=== PATIENT | male | born 1930 | race Caucasian/White ===

== ENCOUNTER 2018-06-07 20:35 | Emergency (ER) | payer MEDICARE, BC ==
[~2018-06-07] VITALS: Ht 185.4 cm; Wt 81.6 kg
[2018-06-08 06:57] VITALS: BP 142/65
[2018-06-08] MEDS ORDERED: SODIUM CHLORIDE 0.9% 1,000 ML IV ONE (07:27)
== END 2018-06-08 08:29 | disposition left against medical advice (07) ==
LOC: ER 20:35
DX: M79.89 Other specified soft tissue disorders (principal); Z59.0 Homelessness
CPT/HCPCS: 71045

== ENCOUNTER 2018-09-12 16:40 | Inpatient (IN) | payer MEDICARE, BC ==
[~2018-09-12] VITALS: Ht 185.4 cm; Wt 80.0 kg
[2018-09-12 17:31] LABS: Basophils # (auto) 0.1 uL; Basophils % (auto) 0.4 % (0.0-2.0); Eosinophils # (auto) 0 uL; Eosinophils % (auto) 0.2 % (0.0-7.0); Hematocrit 37.6 % (41.0-53.0); Hemoglobin 12.7 g/dL (13.5-17.5); Lymphocytes % (auto) 6.6 % (10.0-50.0); Mean Corpuscular Hemoglobin 32.8 pg (28.0-32.0); Mean Corpuscular Hgb Conc. 33.8 g/dL (32.0-36.0); Mean Corpuscular Volume 97.2 fL (80.0-100.0); Monocytes # (auto) 0.8 uL; Neutrophils # (auto) 13.7 uL; Neutrophils % (auto) 87.8 % (37.0-80.0); Nucleated Red Blood Cells % 0.1 %; Platelet Count (auto) 246 10^3/uL (140-450); Red Blood Cells 3.86 10^6/uL (4.5-5.90); Red Cell Distribution Width 14.4 % (11.8-14.3); White Blood Cell 15.6 10^3/uL (4.4-10.8)
[2018-09-12 18:02] LABS: Albumin 3.3 g/dL (3.4-5.0); Calcium 8.5 mg/dL (8.5-10.1); Potassium 4.1 mmol/L (3.5-5.1)
[2018-09-12 18:03] LABS: BUN/Creatinine Ratio 25.8
[2018-09-12 18:07] LABS: Bilirubin, Total 0.9 mg/dL (0.2-1.0); Total Protein 7.3 g/dL (6.4-8.2)
[2018-09-12 18:31] LABS: Urine Bacteria NONE SEEN /hpf (None Seen); Urine Blood Negative /uL (Negative); Urine Mucus FEW (None Seen); Urine WBC 1 /hpf (0 - 3)
[2018-09-12] MEDS ORDERED: ACETAMINOPHEN 325 MG TAB PO PRN (22:00)
[2018-09-12] MEDS ORDERED: ONDANSETRON HCL 4 MG/2 ML VIAL IV PRN (22:00)
[2018-09-12] MEDS ORDERED: SODIUM CHLORIDE 0.9% 1,000 ML IV ONE (22:00)
[2018-09-12] MEDS ORDERED: LORazepam 0.5 MG TAB PO PRN (22:00)
[2018-09-12] MEDS: HYDROcodone-ACET 5/325MG TAB PO PRN (22:35)
[2018-09-12] MEDS: DONEPEZIL HYDROCHLORIDE 5 MG TAB PO SCH (22:35)
[2018-09-12] MEDS: cefTRIAXone 1GM/50ML D5W 50 ML IV SCH (22:35)
--- NOTE | 2018-09-12 22:45 | NUR ---
Respiratory note: NO PRN TX GIVEN AT THIS TIME, NOT INDICATED. NO SOB NOTED. SPO2 98% ON RA,HR 59, RR 18. BREATH SOUNDS DIMINISHED THROUGHOUT. PT IS AWAKE AND ALERT, WATCHING TV. STATES HE IS HUNGRY. SANDWICH PROVIDED. NO DISTRESS NOTED.
--- NOTE | 2018-09-12 23:05 | NUR ---
MS admit from ER FATEMEH ZAVALA admitted to tele/MS after SBAR received from Vincent SANTA. Patient oriented to Selina Pro RN primary RN, unit, room, bed, and unit policies regarding patient care and visiting hours. Patient weighed by bedscale and encouraged to call if they need something. All questions and concerns addressed, patient verbalized understanding. Note: Fall and safety precautions in place. Call light within reach.
[2018-09-12 23:25] VITALS: BP 130/59
[2018-09-12 23:30] VITALS: BP 114/50
--- NOTE | 2018-09-12 23:30 | NUR ---
WOUND Wounds on bilateral heels cleansed with wound rack cleaner, wound culture of moist area on right heel taken, pictures of both feet taken, and dressed. Pt tolerated well. Will continue to monitor
[2018-09-12 23:54] VITALS: BP 114/50
[2018-09-13] MEDS ORDERED: DEXTROSE (50%) 50ML SYRG IV PRN (00:15)
[2018-09-13] MEDS ORDERED: HYDR-4683 PO (00:19)
[2018-09-13] MEDS ORDERED: POTA10TA79 PO (00:19)
[2018-09-13] MEDS: CLINDAMYCIN 600MG IV 50 ML IV SCH ×4 (00:19→21:39)
[2018-09-13] MEDS ORDERED: DONE5TAB31 PO (00:19)
[2018-09-13] MEDS ORDERED: FURO20TA3 PO (00:19)
[2018-09-13] MEDS ORDERED: [UNRECOGNIZED DRUG - CODE] IM (00:22)
[2018-09-13] MEDS ORDERED: OMEP20TA PO (00:22)
[2018-09-13] MEDS ORDERED: METO-169 PO (00:22)
[2018-09-13] MEDS ORDERED: TRAZ50TA2 PO (00:22)
[2018-09-13] MEDS ORDERED: AMLO5TAB13 PO (00:22)
[2018-09-13] MEDS ORDERED: FLUT250M2 INH (00:22)
--- NOTE | 2018-09-13 04:49 | NUR ---
REFUSE Pt refusing lab draw this morning, stating to "come back later after I eat." Educated patient that MD has ordered lab draws this morning and importance of monitoring lab values daily. Pt verbalized understanding, still refusing. Informed assistant city attorney to return at later time.
[2018-09-13 05:00] VITALS: BP 120/56
[2018-09-13] MEDS: InsuLIN REG 1unit/0.01ml Soln (100units/ml) SC SCH ×4 (06:19→21:39)
[2018-09-13] MEDS: ACCU-CHEK COMFORT CURVE STRIP VI SCH ×4 (06:19→21:40)
--- NOTE | 2018-09-13 08:00 | NUR ---
Opening Shift Note Assumed care of patient, awake and alert. No S/S of distress/SOB. Patient c/o Corado catheter leaking. This nurse checked the catheter. There was urine in the tubing and in the bag. Attached a stat lock to keep Corado in place. Instructed on POC and to call for assist PRN, will continue to monitor for changes Q1hr and PRN.
[2018-09-13 09:37] VITALS: BP 118/55
[2018-09-13] MEDS: cefTRIAXone 1GM/50ML D5W 50 ML IV SCH (09:39)
[2018-09-13] MEDS: HYDROcodone-ACET 5/325MG TAB PO PRN ×2 (09:39→21:40)
[2018-09-13] MEDS: amLODIPine BESYLATE 5 MG TAB PO SCH (09:40)
--- NOTE | 2018-09-13 10:00 | NUR ---
Refusing labs Lab called and said patient refused lab draw again this morning (second time) and that they were going to cancel the labs for this morning.
--- NOTE | 2018-09-13 10:00 | NUR ---
Respiratory note: ASSESSED PT FOR PRN TX. PT AWAKE AND ALERT NO RESPIRATORY DISTRESS NOTED HR 60, SPO2 95% ON ROOM AIR, RR 20 BS ARE DIMINISHED. PT KNOWS TO HAVE RT PAGED IF TX NEEDED.
[2018-09-13 12:40] VITALS: BP 110/57
[2018-09-13] MEDS: IPRATROPIUM BROM 0.5 MG/2.5ML INH SOL NEB PRN (12:55)
[2018-09-13] MEDS: ALBUTEROL SULF 2.5 MG/0.5ML(0.5%) NEB SOLN NEB PRN (12:55)
--- NOTE | 2018-09-13 15:50 | NUR ---
Incorrect entry - pain Incorrect entry regarding abdominal pain. This was entered on the wrong patient. Please disregard. Patient is not c/o any abdominal pain.
[2018-09-13 16:56] VITALS: BP 117/69
[2018-09-13] MEDS ORDERED: TAMSULOSIN HYDROCHLORIDE 0.4 MG CAP PO SCH (18:00)
--- NOTE | 2018-09-13 18:10 | NUR ---
WOUND CARE NOTE: PATIENT WAS RECENTLY ADMITTED TO [facility] WITH DIAGNOSIS OF BLE FEET CELLULITIS. CURRENT BIBIANA SCORE IS 17. PATIENT CAN AMBULATE WITH NO ASSISTANCE BY STAFF. PATIENT NOTED TO HAVE SKIN INTEGRITY ISSUES TO BILATERAL FEET. WOUND PHOTOS TAKEN UPON ADMIT BY BEDSIDE NURSE. PATIENT STATES THAT HE HAS HAD "WOUNDS" TO HIS BILATERAL FEET FOR MORE THAN 2 YEARS. PATIENT HAS MULTIPLE AREAS WITH HYPERKERATOTIC SKIN. NO OPEN OR DRAINING AREAS NOTED. NO S/S OF INFECTION NOTED. NO EDEMA NOTED TO SKIN. PATIENT WOULD BENEFIT FROM BID APPLICATIONS WITH HYDROGUARD OINTMENT TO HELP SLOUGH OFF CRUSTY HYPERKERATOTIC SKIN. PATIENT SHOULD ELEVATE HIS FEET WHEN IN BED. SKIN WOUND CARE PLAN IMPLEMENTED. NO FURTHER WOUND CARE MONITORING NEEDED. Addendum: 09/13/18 at 1817 by Lucinda Love RN Amended: Links added.
--- NOTE | 2018-09-13 19:20 | NUR ---
Opening Shift Note Assumed care of pt., awake and alert x4 sitting up in bed watching television. No S/S of distress or SOB, no pain noted or reported at this time. Respirations are even and unlabored. Updated pt. on POC and instructed to call for assistance as needed, pt. verbalized understanding. Bed locked in lowest position, bed rails up x2, call light within reach. Will continue to monitor Q1HR and PRN.
--- NOTE | 2018-09-13 19:50 | NUR ---
Respiratory note: ASSESSMENT FOR PRN MED NEB TX. PT PRESENTING NO RESPIRATORY DISTRESS. HR 68, SPO2 98% ON ROOM AIR, RR 17, BS CLEAR/DIMINISHED. PT AWARE TO HAVE RN PAGE RT IF MED NEB TX IS NEEDED, WILL CONTINUE TO MONITOR.
[2018-09-13] MEDS: DONEPEZIL HYDROCHLORIDE 5 MG TAB PO SCH (21:39)
[2018-09-13 22:00] VITALS: BP 129/68
[2018-09-14] MEDS: HYDROcodone-ACET 5/325MG TAB PO PRN (04:49)
[2018-09-14 05:00] VITALS: BP 133/66
[2018-09-14] MEDS: CLINDAMYCIN 600MG IV 50 ML IV SCH (06:26)
[2018-09-14] MEDS: ACCU-CHEK COMFORT CURVE STRIP VI SCH ×2 (06:26→11:30)
[2018-09-14] MEDS: InsuLIN REG 1unit/0.01ml Soln (100units/ml) SC SCH ×2 (06:26→11:30)
--- NOTE | 2018-09-14 07:01 | NUR ---
Pt. missing size 13 white tennis shoes, notified charge of missing belonging.
--- NOTE | 2018-09-14 08:00 | NUR ---
Opening Shift Note Assumed care of patient, awake and alert. No S/S of distress/SOB. Patient stated he had a headache and the Cornelius wasn't working well. When asked about the headache, he got upset and said he had talked about it the previous day. He said the headache had been going on for a year that that it went from his head, down into his neck, and into his left arm. He said he has told people about it and has the best doctors at [facility] and they aren't able to get rid of the headache. He stated that one doctor told him he was schizophrenic. Instructed on POC and to call for assist PRN, will continue to monitor for changes Q1hr and PRN.
[2018-09-14 08:58] VITALS: BP 116/74
[2018-09-14] MEDS: cefTRIAXone 1GM/50ML D5W 50 ML IV SCH (09:32)
[2018-09-14] MEDS: amLODIPine BESYLATE 5 MG TAB PO SCH (09:33)
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
--- NOTE | 2018-09-14 10:55 | NUR ---
assessment Patient is a 88 year old male who is alert and oriented. Patients cognitive abilities are intact. Prior to admission patient lived home with family and functioned independently. Patient informed me he is able to care for his own ADLs. Per patient he will return home to his prior living arrangements post discharge. Patient informed me he has no need for DME. Patient will need a taxi voucher on discharge. I informed patient he has a right to speak to a social staff worker regarding all care. I informed patient he has a right to participate in any and all discharge planning. Patient is aware of visiting hours on the hospital floor. I informed patient he has a right to privacy. Patient does not have a POA and advanced directive. I have offered patient information on POA and advanced directives. I informed the patient the advantages and benefits of having an Advanced Directive. Patient verbalized understanding and agreed to discharge plan. Per consult transportation. I have authorized a taxi voucher for discharge. Addendum: 09/14/18 at 1503 by Zuri SANCHEZ Amended: Links added.
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
[2018-09-14] MEDS ORDERED: HALOPERIDOL 1 MG TAB PO PRN (11:00)
[2018-09-14] MEDS: IPRATROPIUM BROM 0.5 MG/2.5ML INH SOL NEB PRN (11:01)
[2018-09-14] MEDS: ALBUTEROL SULF 2.5 MG/0.5ML(0.5%) NEB SOLN NEB PRN (11:01)
[2018-09-14 11:31] VITALS: BP 120/74
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
--- NOTE | 2018-09-14 12:33 | NUR ---
Pt leaving Patient made it a short way down the [place] walking very slowly. Staff brought him a chair to sit and rest. Unable to find a contact for patient. He said the address we have on file was incorrect and gave a different address. Charge nurse found a number in a note from a previous visit. This nurse called Lydia at [phone]. She said she didn't know his address but knew it was not within walking distance as it is in [place]. She said the patient lives with someone named Nick (CHANTELL) and that she would call him and have him call back to the hospital. Patient was taken downstairs to wait on the couches in the lobby. FINNISH RUBBER was waiting with patient up on the floor and said the patient's cell phone kept ringing and that he would look at it and hang up without answering.
--- NOTE | 2018-09-14 12:38 | NUR ---
Similar behavior previously Charge nurse looked at previous admission and said the patient had stated previous regarding the chip implants in hand and hip. She said he had previously gone to the ED and eloped. This behavior is not new for the patient. He is alert and oriented to answer questions. He knows where he is and the time and states "I am not an idiot".
== END 2018-09-14 12:45 | disposition left against medical advice (07) | DRG 603 ==
LOC: ER 16:40 → EDBD 16:40 → OVERFLOW 21:53 → WEST WING 23:09
PROVIDERS: ADMIT Nurse Practitioner Family; ATTEND Internal Medicine
DX: L03.115 Cellulitis of right lower limb (principal); E87.1 Hypo-osmolality and hyponatremia; E44.1 Mild protein-calorie malnutrition; E11.621 Type 2 diabetes mellitus with foot ulcer; L03.116 Cellulitis of left lower limb; E11.21 Type 2 diabetes mellitus with diabetic nephropathy; F03.90 Unspecified dementia, unspecified severity, without behavioral disturbance, psychotic disturbance, mood disturbance, and anxiety; D63.8 Anemia in other chronic diseases classified elsewhere; F17.210 Nicotine dependence, cigarettes, uncomplicated; I10 Essential (primary) hypertension; I70.90 Unspecified atherosclerosis; K46.9 Unspecified abdominal hernia without obstruction or gangrene; S81.802A Unspecified open wound, left lower leg, initial encounter; S81.801A Unspecified open wound, right lower leg, initial encounter; Z53.21 Procedure and treatment not carried out due to patient leaving prior to being seen by health care provider; Z96.649 Presence of unspecified artificial hip joint; X58.XXXA Exposure to other specified factors, initial encounter; Z98.1 Arthrodesis status; Z68.23 Body mass index [BMI] 23.0-23.9, adult; Y93.89 Activity, other specified; Y92.89 Other specified places as the place of occurrence of the external cause; Y99.8 Other external cause status
CPT/HCPCS: 36415; 51702; 71045; 73700; 74176; 80053; 81001; 82962; 83690; 85025; 87077; 87186; 87205; 94640; 94761; 96365; G0378; J0696; J2405; J3490

== ENCOUNTER 2019-07-27 15:51 | Inpatient (IN) | payer MEDICARE, BC ==
[~2019-07-27] VITALS: Ht 185.4 cm; Wt 78.2 kg
[~2019-07-27 15:51] MED LIST: AMLO5TAB15 PO; DONE5TAB31 PO; FLUT250M2 INH; FURO20TA3 PO; HYDR-4833 PO; METO-169 PO; OMEP20TA PO; POTA10TA79 PO; TRAZ50TA2 PO; [UNRECOGNIZED DRUG - CODE] IM
[2019-07-27] MEDS ORDERED: MORPHINE SULF INJ 2 MG/ML SYRINGE 1ML IV ONE (16:30)
[2019-07-27] MEDS ORDERED: ONDANSETRON HCL 4 MG/2 ML VIAL IV ONE ×2 (16:30→17:15)
[2019-07-27 16:50] LABS: Basophils # (auto) 0.1 10 ^3/uL (0-0.2); Basophils % (auto) 0.9 % (0.0-2.0); Eosinophils # (auto) 0.3 10 ^3/uL (0-0.8); Eosinophils % (auto) 3.9 % (0.0-7.0); Hematocrit 40.9 % (41.0-53.0); Lymphocytes # (auto) 1.3 10 ^3/uL (0.4-5.4); Lymphocytes % (auto) 17.5 % (10.0-50.0); Mean Corpuscular Hemoglobin 33.6 pg (28.0-32.0); Mean Corpuscular Hgb Conc. 34.1 g/dL (32.0-36.0); Mean Corpuscular Volume 98.3 fL (80.0-100.0); Monocytes # (auto) 0.6 10 ^3/uL (0-1.3); Monocytes % (auto) 7.7 % (0.0-12.0); Neutrophils # (auto) 5.1 10 ^3/uL (1.6-8.6); Platelet Count (auto) 234 10^3/uL (140-450); Red Blood Cells 4.16 10^6/uL (4.5-5.90); White Blood Cell 7.3 10^3/uL (4.4-10.8)
[2019-07-27 17:01] LABS: Albumin 3.8 g/dL (3.4-5.0); Anion Gap 6 (5-15); BUN/Creatinine Ratio 28.6; Blood Urea Nitrogen 24 mg/dL (7-18); Calcium 9.6 mg/dL (8.5-10.1); Carbon Dioxide 30 mmol/L (21-32); Chloride 100 mmol/L (98-107); GFR African American 111 mL/min; GFR Non-African American 92 mL/min; Glucose 96 mg/dL (74-106); Potassium 4.5 mmol/L (3.5-5.1); Sodium 136 mmol/L (136-145)
[2019-07-27 17:06] LABS: Alanine Aminotransferase 28 U/L (16-61); Alkaline Phosphatase 117 U/L (45-117); Aspartate Aminotransferase 23 U/L (15-37); Bilirubin, Total 0.5 mg/dL (0.2-1.0); Total Protein 8.5 g/dL (6.4-8.2)
[2019-07-27] MEDS ORDERED: PANTOPRAZOLE 40 MG/10 ML VIAL INJ IV ONE (17:45)
[2019-07-27] MEDS ORDERED: TEMAZEPAM 15 MG CAP PO PRN (19:30)
[2019-07-27] MEDS ORDERED: NITROGLYCERIN 0.4 MG SL TAB SL PRN (19:30)
[2019-07-27] MEDS ORDERED: ACETAMINOPHEN 500 MG TAB PO PRN (19:30)
[2019-07-27] MEDS ORDERED: LACTULOSE 20Gm/30ML SOLN PO PRN (19:30)
[2019-07-27] MEDS ORDERED: MORPHINE SULF INJ 2 MG/ML SYRINGE 1ML IV PRN (19:30)
[2019-07-27] MEDS ORDERED: LABETALOL HCL 5 MG/ML ML 20ML VIAL IV PRN (19:30)
[2019-07-27 20:40] VITALS: BP 140/79
--- NOTE | 2019-07-27 20:40 | NUR ---
Telemetry admit from ER LUCASFATEMEH admitted to Telemetry unit after SBAR received. Patient oriented to LYNDA NUNES OCA, primary RN, unit, room, bed, and unit policies regarding patient care and visiting hours. Patient now on continuous telemetry monitoring, tele box # 1 and telemetry reading on arrival to unit is sinus rhythm 90s. Patient weighed by bedscale and encouraged to call if they need something. Patient complaining of left hip pain 9/10, will medicate as ordered. All questions and concerns addressed, patient verbalized understanding. Bed in lowest locked position, call light within reach, side rails up x2, fall precautions in place. Will continue to monitor Q1hr and PRN.
[2019-07-27 21:00] VITALS: BP 140/79
[2019-07-27] MEDS: SODIUM CHLORIDE 0.9% 1,000 ML IV SCH (21:00)
--- NOTE | 2019-07-27 21:10 | NUR ---
Pain control Attempted to medicate patient for pain with Morphine, but patient is now refusing. Morphine wasted with witness of second RN. Offered patient other pain medicine available per MD orders, but patient refusing all pain medication stating "those medicines don't work, they just make my head hurt, I don't want any of them". Offered patient non-pharmacological pain relief such as repositioning, patient refusing at this time. Will continue care.
[2019-07-27 22:06] LABS: Hematocrit 34.3 % (41.0-53.0)
[2019-07-27] MEDS ORDERED: CYCL1TAB18 PO (22:55)
[2019-07-27] MEDS ORDERED: CITA-77 PO (22:55)
--- NOTE | 2019-07-27 23:58 | NUR ---
Spoke with hospitalist Spoke with MD Yanez in regards to rhythm change on tele showing patient sustaining A-fib 120-130s and patient converting back and forth to ST 120-130s, while patient is sleeping. EKG done which shows A-flutter. Patient denies any history of A-fib or heart dysrhythmias. Patient is asymptomatic, denies any chest pain, diaphoresis, or SOB. Per MD Yanez, no new orders at this time, continue to monitor as patient has a cardiology consult pending. Continue care.
--- NOTE | 2019-07-28 00:28 | NUR ---
Called/paged Dr. Yanez called regarding HR sustaining between A-fib 130s-150s. Waiting for call back. Continue care.
--- NOTE | 2019-07-28 00:30 | NUR ---
returned call Dr. Yanez returned call, updated on patient status and reason for call, new orders received and read back for verification. Continue care.
[2019-07-28] MEDS ORDERED: METOPROLOL TARTRATE 1MG/1ML-5ML VIAL IV SCH (00:45)
[2019-07-28] MEDS: MORPHINE SULF INJ 2 MG/ML SYRINGE 1ML IV PRN ×5 (01:03→19:52)
--- NOTE | 2019-07-28 01:30 | NUR ---
Endorsed care to Kirsten RN No distress noted at this time.
[2019-07-28 01:34] LABS: Hematocrit 36.5 % (41.0-53.0); Hemoglobin 12.4 g/dL (13.5-17.5)
[2019-07-28] MEDS: ONDANSETRON HCL 4 MG/2 ML VIAL IV PRN (05:32)
[2019-07-28 05:36] VITALS: BP 110/71
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
--- NOTE | 2019-07-28 08:30 | NUR ---
Opening Note Assumed care of patient, he is A & O x4, with periods of dellusion. He is comfortable at this time, resting comfortably. POC discussed with patient. He is refusing to be turned or moved at this time. Will revisit at a later time. Patient is also refusing blood draw at this time. Bed is in lowest, locked position, call light within reach. Will continue to monitor Q1h and PRN.
[2019-07-28 09:00] VITALS: BP 121/62
--- NOTE | 2019-07-28 09:18 | NUR ---
Dr. Madrid at bedside. Informed me that there will be no surgical intervention at this time, orders will be placed regarding PT. Will re-evaluate if there is any need, any dislocation or worsening pain with this visit, but no surgery at this time. He spoke to the patient.
--- NOTE | 2019-07-28 10:15 | NUR ---
Dr. Sandy at bedside. Informed Dr. Sandy that Dr. Julius morris not intend to do surgery, but clearance was still wanted just in case. No further orders at this time.
--- NOTE | 2019-07-28 11:00 | NUR ---
WOUND CARE NOTE: IN TO SEE PATIENT AT THIS TIME PER WOUND CARE CONSULT REQUEST. PATIENT ADMITTED TO [facility] WITH DIAGNOSIS OF LEFT HIP FRACTURE. PATIENT HAS CURRENT BIBIANA SCORE OF 12. PATIENT NOTED TO HAVE SKIN TEAR TO LEFT ARM UPON ADMIT. WOUND PHOTO TAKEN AT THAT TIME FOR REFERENCE BY BEDSIDE NURSE. PATIENT IS MAX ASSIST FOR HIS TURNING/REPOSITIONING. NO SURGICAL INTERVENTION TO BE DONE PER ORTHOPEDIC SURGEON. PATIENT NOTED TO HAVE 3 X 1.5 CM PARTIAL THICKNESS SKIN TEAR TO LEFT ELBOW. APPLIED THERAHONEY, OPTIFOAM GENTLE DRESSING. SACRUM AND ALL OTHER BONY PROMINENCES ARE BLANCHABLE. APPLIED OPTIFOAM GENTLE SACRAL DRESSING PREVENTATIVE. SKIN/WOUND CARE PLAN IMPLEMENTED. RECOMMEND: FREQUENT TURN SCHEDULE Q 2 HOURS, PRN CONDITION PERMITS, WITH PRESSURE REDISTRIBUTION USING PILLOWS/WEDGES, AVOIDING LEFT SIDE, MAGI FOAM BOOTS TO BILATERAL FEET/HEELS, BID/PRN APPLICATION WITH MOISTURE BARRIER CREAM, OPTIFOAM GENTLE SACRAL DRESSING PREVENTATIVE, Q 3 DAY/PRN DRESSING CHANGE TO SKIN TEAR OF LEFT ELBOW, DIETARY CONSULT, CONTINUED MONITORING BY WOUND CARE TEAM. Addendum: 07/28/19 at 1737 by Lucinda Love RN Amended: Links added.
[2019-07-28] MEDS: SODIUM CHLORIDE 0.9% 1,000 ML IV SCH ×2 (11:24→19:53)
--- NOTE | 2019-07-28 11:30 | NUR ---
Spoke to Dr. Angeles at bedside. Orders received, read back and verified regarding patient home medications and POC. Will medicate per orders.
[2019-07-28 12:30] VITALS: BP 153/61
[2019-07-28] MEDS ORDERED: METOPROLOL SUCCINATE XL 50 MG TAB PO SCH (14:45)
--- NOTE | 2019-07-28 14:45 | NUR ---
Physical therapy at bedside. Assisted patient to sit in chair. Patient tolerated well, sat for 30 minutes, called when he was ready to get back into bed.
--- NOTE | 2019-07-28 15:15 | NUR ---
Inyo boots placed on bilateral heels.
[2019-07-28] MEDS: POTASSIUM CHL 10 Meq TABLET PO SCH (15:41)
[2019-07-28] MEDS: amLODIPine BESYLATE 5 MG TAB PO SCH (15:53)
[2019-07-28] MEDS: FUROSEMIDE 20 MG TAB PO SCH (15:53)
[2019-07-28 17:26] VITALS: BP 137/73
--- NOTE | 2019-07-28 19:40 | NUR ---
Opening Shift Note Assumed care of patient, awake and alert. Fall and safety precautions in place. Call light within reach and able to use. No S/S of distress/SOB. Instructed on POC and to call for assist PRN, patient verbalized understanding and in agreement. Will continue to monitor for changes Q1hr and PRN.
--- NOTE | 2019-07-28 19:45 | NUR ---
PAIN ASSESSMENT PT COMPLAINS OF 10/10 PAIN USING ADULT SCALE TO BACK WHICH IS CHRONIC IN NATURE. PATIENT REQUESTS MORPHINE AT THIS TIME (SEE EMAR FOR ADMINISTRATION). BLOOD PRESSURE 133/64' HEART RATE 85 BPM; RESPIRATIONS EVEN AND UNLABORED. WILL CONTINUE TO MONITOR.
--- NOTE | 2019-07-28 20:45 | NUR ---
PAIN REASSESSMENT PATIENT REPORTS PAIN LEVEL 0/10 USING ADULT SCALE. WILL CONTINUE TO MONITOR.
[2019-07-28] MEDS: DONEPEZIL HYDROCHLORIDE 5 MG TAB PO SCH (21:07)
--- NOTE | 2019-07-28 21:43 | NUR ---
PATIENT REQUESTS PRN PATIENT REQUESTS MEDICATION TO HELP HIM FALL ASLEEP (SEE EMAR FOR ADMINISTRATION). CALL LIGHT WITHIN REACH AND ABLE TO USE. FALL AND SAFETY PRECAUTIONS IN PLACE. BED LOCKED IN LOWEST POSITION WITH SIDE RAILS UP X2. WILL CONTINUE TO MONITOR.
[2019-07-28 22:00] VITALS: BP 133/64
--- NOTE | 2019-07-29 00:50 | NUR ---
PAIN ASSESSMENT PT COMPLAINS OF 10/10 PAIN USING ADULT SCALE TO BACK WHICH IS CHRONIC DULL/PRESSURE PAIN. PATIENT REQUESTS MORPHINE AT THIS TIME (SEE EMAR FOR ADMINISTRATION). RESPIRATIONS EVEN AND UNLABORED. WILL CONTINUE TO MONITOR.
[2019-07-29] MEDS: MORPHINE SULF INJ 2 MG/ML SYRINGE 1ML IV PRN ×5 (00:54→20:03)
--- NOTE | 2019-07-29 01:50 | NUR ---
PAIN REASSESSMENT PATIENT REPORTS PAIN LEVEL 0/10 USING ADULT SCALE. WILL CONTINUE TO MONITOR.
[2019-07-29] MEDS: traMADol HCL 50 MG TAB PO PRN ×2 (03:19→23:13)
[2019-07-29 05:00] VITALS: BP 132/62
--- NOTE | 2019-07-29 06:29 | NUR ---
NO BM - PRN FOR BM PATIENT HAS NOT HAD BOWEL MOVEMENT. PATIENT EDUCATED ON REASON FOR MEDICATION, PATIENT VERBALIZED UNDERSTANDING AND IN AGREEMENT. EDUCATION GIVEN. MEDICATION FOR CONSTIPATION GIVEN AT THIS TIME (SEE EMAR FOR ADMINISTRATION). WILL CONTINUE TO MONITOR.
--- NOTE | 2019-07-29 06:46 | NUR ---
HEAT PACK APPLIED TO NECK. PAIN MEDS NOT YET DUE, PATIENT VERBALIZED UNDERSTANDING AND IN AGREEMENT. PATIENT STATES IT FEELS MUCH BETTER AFTER HEAT PACK APPLIED. WILL CONTINUE TO MONITOR.
--- NOTE | 2019-07-29 08:00 | NUR ---
Opening Note Assumed care of patient, he is A & O x4, with periods of paranoia and anger. Patient states "there are chips inside of my leg and my head." POC discussed with patient. Bed is in lowest, locked position, call light within reach. Will continue to monitor Q1h and PRN.
[2019-07-29 09:21] VITALS: BP 117/62
[2019-07-29] MEDS: amLODIPine BESYLATE 5 MG TAB PO SCH (09:48)
[2019-07-29] MEDS: METOPROLOL SUCCINATE XL 50 MG TAB PO SCH (09:49)
[2019-07-29] MEDS: POTASSIUM CHL 10 Meq TABLET PO SCH (09:49)
[2019-07-29] MEDS: FUROSEMIDE 20 MG TAB PO SCH (09:49)
[2019-07-29] MEDS: CITALOPRAM HYDROBR 20 MG TAB PO SCH (09:49)
[2019-07-29] MEDS: SODIUM CHLORIDE 0.9% 1,000 ML IV SCH (09:50)
--- NOTE | 2019-07-29 12:30 | NUR ---
NUTRITION ASSESSMENT NOTES Please refer to link notes of nutrition screen form filed under the intervention section of the plan of care for further details. Est. Energy Needs: 9378-7402 kcal (20-25 kcal/kg BW). Est. Protein Needs: 87-96 gms/day (1.0-1.1 gms/kg BW). Will continue to monitor pertinent labs and reassess nutrient need prn Addendum: 07/29/19 at [address] Amended: Links added.
[2019-07-29 13:00] VITALS: BP 124/67
--- NOTE | 2019-07-29 14:00 | NUR ---
Spoke to patient son on the phone Aleksandr Jacoby Montenegro Inquired about the patient's living situation. The patient told this RN that he lives with his daughter, he informed this RN that he does not know her phone number, so I called his son to ask for her phone number. Son Aleksandr informed this RN that the patient lives in [place], [place], he left all of a sudden two days ago and drove here to [place]. The son states "he goes from ER to ER to get pain medication. 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 He informed this RN that he has a sister in [place] that has tried to care for him in the past but can no longer take care of him. This RN will consult social media project manager regarding living situation, patient has a hip fracture and will need somewhere to go, patient states that he would go to rehab, he has family here too. Phone number of daughter Nicole [phone] Address of patient in [facility]: [address] [place] [address] [address], [place], [place].
[2019-07-29 17:32] VITALS: BP 125/63
[2019-07-29] MEDS: ONDANSETRON HCL 4 MG/2 ML VIAL IV PRN (17:44)
--- NOTE | 2019-07-29 19:05 | NUR ---
Opening Shift Note Assumed care of patient, awake and alert. No S/S of distress/SOB. Safety measures in place bed in lowest position, side rails up x2, and call light within reach. Instructed on POC and to call for assist PRN, will continue to monitor for changes Q1hr and PRN.
--- NOTE | 2019-07-29 20:03 | NUR ---
Pain Patient called complaining of pain to left hip after being placed on the bedpan. Pain is currently 10/10. Medication administered. Will reassess pain in 30 mins. Will continue to monitor every hour and as needed.
--- NOTE | 2019-07-29 20:33 | NUR ---
Pain reassessment Patient states pain is 0/10. Patient resting quietly with eyes closed. Will continue to monitor every hour and as needed.
[2019-07-29 22:00] VITALS: BP 103/53
[2019-07-29] MEDS: DONEPEZIL HYDROCHLORIDE 5 MG TAB PO SCH (22:37)
--- NOTE | 2019-07-29 23:16 | NUR ---
Patient complaining of pain 6/10 after turning. Medication administered. Will reassess in one hour. Will continue to monitor every hour and as needed.
--- NOTE | 2019-07-30 00:13 | NUR ---
Patient states pain is 0/10. Will continue to monitor every hour and as needed.
[2019-07-30 05:00] VITALS: BP 119/61
--- NOTE | 2019-07-30 05:23 | NUR ---
Patient's IV discontinued, patient's was lying on IV line and it pulled out. Catheter fully intact, site free of pain. Pressure dressing applied to site. Patient tolerated procedure well. IV insertion. IV access obtained, via clean sterile technique by inserting 22 gauge catheter at right forearm after 3 attempts. IV secured properly. No trauma to site. Patient tolerated well. Signed: 07/30/19 at 0529 by GIAN HUTSON RN RN
[2019-07-30] MEDS: SODIUM CHLORIDE 0.9% 1,000 ML IV SCH (05:33)
[2019-07-30 09:23] VITALS: BP 134/74
[2019-07-30] MEDS: MORPHINE SULF INJ 2 MG/ML SYRINGE 1ML IV PRN (09:30)
[2019-07-30] MEDS: POTASSIUM CHL 10 Meq TABLET PO SCH (09:33)
[2019-07-30] MEDS: CITALOPRAM HYDROBR 20 MG TAB PO SCH (09:33)
[2019-07-30] MEDS: FUROSEMIDE 20 MG TAB PO SCH (09:34)
[2019-07-30] MEDS: amLODIPine BESYLATE 5 MG TAB PO SCH (09:34)
[2019-07-30] MEDS: METOPROLOL SUCCINATE XL 50 MG TAB PO SCH (09:35)
[2019-07-30 13:00] VITALS: BP 147/71
--- NOTE | 2019-07-30 13:31 | NUR ---
D/C Planning Per SS consult for physical therapy. SW II Zuri advised patient has a service dog and to contact [facility], [facility] and [facility] if they accept patient with service dog. [facility] are unable to accommodate patient. Per Erica with [facility] Ph: ) they will accommodate patient. Patient has been accepted to room [address] S[address]en. Transportation has been arrange at 15:00 with [facility] Ph:) via [employer]. KIET Bradford was informed of d/c plan.
[2019-07-30 14:48] VITALS: BP 134/74
--- NOTE | 2019-07-30 15:10 | NUR ---
CHARGE PHOTOS PATIENT REFUSED DISCHARGE PHOTOS, PATIENT WAS STRAPPED TO [facility].
--- NOTE | 2019-07-30 15:15 | NUR ---
PATIENT DSICHARGED SNF Discharge instructions given as ordered. All questions and concerns addressed. Patient verbalized understanding. IV removed with catheter intact, pressure dressing applied. Medication reconciliation form completed and copy given to patient. Home medications held in Pharmacy returned to patient, and needed vaccines given. Telemetry unit returned to ICU. Report given to RAJINDER at [facility]. Patient transported by with all personal belongings. No distress noted at time of departure.
--- NOTE | 2019-07-30 15:33 | NUR ---
assessment re: ss consult patient being paranoid Patient is a 89 year old male who is answering appropriately. Prior to admission patient resided with his daughter and needed assistance. Patient informed me he has a cane for home use. Patients PCP is Dr Bryson at [facility] in [place]. Patient informed me he fell over a curb that had a piece of something on top of it and he broke his hip. Patient has a service dog at bedside. Patient refuses SNF unless he can have his dog. Kristal GHOSH will find SNF who will take his dog. I informed patient he has a ss consult about being paranoid, stating weird things about MD planing a chip in his skin. Patient informed me he told the nurse that the MD who did his surgery put clips in his hip. I informed patient he has a right to speak to a social services analyst regarding all care. I informed patient he has a right to participate in any and all discharge planning. Patient does not have a POA and advanced directive. I have offered patient information on POA and advanced directives. I informed the patient the advantages and benefits of having an Advanced Directive. Patient verbalized understanding and agreed to discharge plan. Addendum: 07/30/19 at 1539 by Zuri SANCHEZ Amended: Links added.
== END 2019-07-30 15:15 | DRG 561 ==
LOC: EDBD 15:51 → ER 15:54 → TELE 15:55 → TELE-EAST 19:38
PROVIDERS: ADMIT Internal Medicine; ATTEND Family Medicine
DX: M97.02XA Periprosthetic fracture around internal prosthetic left hip joint, initial encounter (principal); I45.10 Unspecified right bundle-branch block; F03.90 Unspecified dementia, unspecified severity, without behavioral disturbance, psychotic disturbance, mood disturbance, and anxiety; M85.80 Other specified disorders of bone density and structure, unspecified site; W01.0XXA Fall on same level from slipping, tripping and stumbling without subsequent striking against object, initial encounter; E11.9 Type 2 diabetes mellitus without complications; F17.210 Nicotine dependence, cigarettes, uncomplicated; J44.9 Chronic obstructive pulmonary disease, unspecified; E66.3 Overweight; F32.9 Major depressive disorder, single episode, unspecified; I11.0 Hypertensive heart disease with heart failure; I50.9 Heart failure, unspecified; Z79.899 Other long term (current) drug therapy; Z91.81 History of falling
CPT/HCPCS: 36415; 70450; 72125; 73502; 73700; 80053; 84484; 85014; 85018; 85025; 93005; 93306; 96374; 96375; 96376; 97110; 97530; C9113; G0378; J2405